=== PATIENT | male | born 1980 | race Caucasian/White ===

== ENCOUNTER 2023-10-31 15:07 | Outpatient (AMB) | payer OTHER, SELFPAY ==
--- NOTE | 2023-10-31 15:11 | A.OFFVIS_ITS ---
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 He expresses he has aching pain that started roughly one year ago and progressively got worse. He has aching pain w/ ROM and palpitation, this radiates into his bicep and forearms. He expresses a 4 out of 10 on the pain scale right now and says an 8 out of 10 on his worse days. 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 Ibuprofen, heat, and ice does not give adequate relief. 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 The patient reports that the worst pain he is experiencing is over the lateral aspect of the left elbow, although he also experiences pain in the medial left elbow and both medially and laterally in the right elbow as well. 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 The patient reports that he has been wearing elbow braces at night, but he does not feel they have helped Patient reports numbness and tingling in the small finger of the left hand, that is near constant and worse at night. No other numbness or tingling in bilateral upper extremities. No other acute complaints or concerns at this time. 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 Neuro: Diminished sensation in the left small finger noted Normal sensation to the tips of all other digits at this time No evidence of thenar or intrinsic wasting Good APB muscle belly firing in good finger cross Vascular: Cap refill brisk Pain: The patient reports tenderness to palpation of the bilateral medial and lateral epicondyles, worst on the medial and lateral epicondyle in the left ROM: Range of motion of bilateral elbows full and intact Patient is able to make a closed fist and extend fully bilaterally without difficulty Skin: No lacerations or abrasions. General: No ecchymosis, erythema, or evidence of infection. Positive Cozen's test bilaterally Positive reverse Cozen's test bilaterally Psych: Appears grossly normal Affect normal Attitude cooperative Assessment & Plan Assessment & Plan (1) Lateral epicondylitis of both elbows: Code(s): M77.11 - Lateral epicondylitis, right elbow; M77.12 - Lateral epicondylitis, left elbow Category: Medical (2) Medial epicondylitis of both elbows: Code(s): M77.01 - Medial epicondylitis, right elbow; M77.02 - Medial epicondylitis, left elbow Category: Medical (3) Numbness and tingling in left hand: Code(s): R20.0 - Anesthesia of skin; R20.2 - Paresthesia of skin Category: Medical Plan 1. Lateral epicondylitis, bilateral 2. Medial epicondylitis, bilateral Patient is educated about this condition and the typical recovery course At this time, the patient was referred to occupational therapy for range of motion, strengthening, stabilization of bilateral elbows for treatment of bilateral medial and lateral epicondylitis The patient is informed that he should only continue wearing his elbow brace as if he feels they are helpful, and then he can discontinue use if he is not noticing relief with them. Patient is amenable to this plan If in approximately 6-8 weeks the patient does not notice any relief of symptoms, he should call our office to make another appointment for discussion of further treatment options at that time 3. Numbness and tingling in the left small finger Symptoms nearly constant, daily, worse at night At this time, patient will be referred for nerve conduction study to assess the health of the nerves of the left upper extremity Patient is amenable to this plan Patient will follow-up in our office after nerve conduction study for discussion of results and further treatment options at that time. Orders: Orders OT Evaluation and Treatment 10/31/23 M77.01 - Medial epicondylitis, right elbow, M77.02 - Medial epicondylitis, left elbow, M77.11 - Lateral epicondylitis, right elbow, M77.12 - Lateral epicondylitis, left elbow NE nerve conduction velocity 10/31/23 R20.0 - Anesthesia of skin, R20.2 - P aresthesia of skin NE electromyogram (EMG) 10/31/23 R20.0 - Anesthesia of skin, R20.2 - Paresthesia of skin Coding Level of Care Code New Pt Level 3 (72944) Diagnoses Lateral epicondylitis of both elbows M77.11; M77.12 Medial epicondylitis of both elbows M77.01; M77.02 Numbness and tingling in left hand R20.0; R20.2
== END 2023-10-31 15:45 | disposition home or self-care (01) ==
DX: M77.11 Lateral epicondylitis, right elbow (principal); M77.12 Lateral epicondylitis, left elbow; M77.01 Medial epicondylitis, right elbow; M77.02 Medial epicondylitis, left elbow; R20.0 Anesthesia of skin; R20.2 Paresthesia of skin
CPT/HCPCS: 99203

== ENCOUNTER 2023-11-27 08:16 | Outpatient (REF) | payer OTHER, SELFPAY ==
--- NOTE | 2023-11-27 08:20 | EMG_ITS ---
Left median and ulnar motor and sensory studies were performed. Left radial sensory and median and lateral antecubital brachial sensory studies were performed and needle examination was performed. IMPRESSION: [id number]-be-igbinole left median neuropathy across carpal tunnel. MD ROSALIND Aden/MALLORY / [phone]
== END 2023-11-27 08:17 | disposition home or self-care (01) ==
LOC: HO.NEURO 08:16
DX: R20.0 Anesthesia of skin (principal); R20.2 Paresthesia of skin
CPT/HCPCS: 95886; 95910

== ENCOUNTER 2023-12-28 14:37 | Outpatient (AMB) | payer OTHER, SELFPAY ==
--- NOTE | 2023-12-28 14:38 | MHC.OFFVIS ---
Vital Signs 12/28/23 14:40 Height 6 ft 3 in Weight 258 lb BMI 32.2 Intake Visit Reasons: OV- left hand EMG review Intake Note: Rl is a 43 year old male who presents to the office today for his left hand EMG review. Allergies No Known Allergies Allergy (Verified 12/28/23 14:41) HPI HPI OV- left hand EMG review: Details: Patient is a 43-year-old male who presents for left hand EMG review. The patient states that his symptoms have remained consistent since last evaluation, and that they are intermittent, but daily, and worse at night. Patient would like to explore any surgical intervention indicated at this time. No other acute complaints or concerns at this time. 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 Neuro: Diminished sensation in the left small finger noted Normal sensation to the tips of all other digits at this time No evidence of thenar or intrinsic wasting Good APB muscle belly firing in good finger cross Vascular: Cap refill brisk Pain: The patient reports tenderness to palpation of the bilateral medial and lateral epicondyles, worst on the medial and lateral epicondyle in the left ROM: Range of motion of bilateral elbows full and intact Patient is able to make a closed fist and extend fully bilaterally without difficulty Skin: No lacerations or abrasions. General: No ecchymosis, erythema, or evidence of infection. Positive Cozen's test bilaterally Positive reverse Cozen's test bilaterally Psych: Appears grossly normal Affect normal Attitude cooperative Results Reviewed Results Reviewed: IMPRESSION: [id number] left median neuropathy across carpal tunnel. MD ROSALIND Aden/MALLORY Assessment & Plan Assessment & Plan (1) Carpal tunnel syndrome of left wrist: Code(s): G56.02 - Carpal tunnel syndrome, left upper limb Category: Medical Plan 1. Carpal tunnel syndrome, left Symptoms intermittent, daily, worse at night I educated the patient about the condition. I discussed both operative and nonoperative treatment options. The patient would like to proceed with surgery. The risks and benefits of operative treatment were discussed with the patient and the patient wishes to proceed with surgery. These risks include, but are not limited to, risk of damage to blood vessels, nerves, tendons, infection, recurrence, incomplete relief of preoperative symptoms, persistent pain, possible need for further surgery, and the risks associated with regional blocks and/or anesthesia. Plan is to take the patient to the operating room at some point in the next few weeks for the following procedures: 1. Left carpal tunnel release under local anesthesia All of the preoperative paperwork including the consent was discussed today. All of the patient's questions were answered in the clinic today. The patient understands that they will be in contact with our cardiovascular surgical tech to discuss scheduling their procedure. Patient denies diabetes, blood thinners, asthma, heart issues, lung issues, kidney issues, or current smoking. Coding Level of Care Code Est Pt Level 4 (47858) Diagnoses Carpal tunnel syndrome of left wrist G56.02
[2023-12-28 14:40] VITALS: BMI 32.2
== END 2023-12-28 15:19 | disposition home or self-care (01) ==
DX: G56.02 Carpal tunnel syndrome, left upper limb (principal)
CPT/HCPCS: 99214

== ENCOUNTER 2024-01-02 15:00 | Outpatient (RCR) | payer OTHER, SELFPAY ==
--- NOTE | 2023-11-20 15:42 | MHC.OT.EP ---
[address] [phone] Occupational Therapy Plan of Care Patient Name: Rl Tomas Date of Evaluation: 11/20/23 Diagnosis: L UE Medial/ lateral epicondylitis R UE lateral epicondilitis Pain Location: R FA L FA Pain Score: 6 Pain Scale Used: Numeric (0 - 10) Aggravating Factors: twisting, over head lifting, carrying, gripping Alleviating Factors: nothing ; pt has trialed hot/ cold, Tylenol, TENS unit Assessment: Pt is a 43 yr. 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 He also reports pain along his L radial wrist and numbness/ tingling in his SF/RF w/ mild ulnar clawing. He reports he has been making modifications at work as needed and relying on his R UE more and has been experiencing similar pain starting in his R Lateral epicondyle. Pt saw the MD, he reports no MRI or X-ray at this time but he is being scheduled for a nerve conduction study. Pt has been referred to skilled OT Therapy to decrease his pain, and increase the strength, and functional use of his B UE's Phalens : (-) Bilateral Tinels ulnar (+) Guyons canal (+) : L side only L side (+) [place]in (+) PALPATION of lateral epi Konstantin (+) palaption of medial epicondyle L side [ End ] Frequency and Duration: The patient will be seen 2xs a week for 8 weeks Short Term Goals: Pt will be complaint w/ HEP Pt will use modalities HOT/COLD to decrease sx's of pain/inflammation in his B UE's Pt will report 3/10 pain in L UE Half-Way Goals: Pt will gain 20 lbs of L secretary [employer] strength w/ elbow extended to 100lbs Pt will report 2/10 pain in his R UE Pt will report NO difficulty sleeping due to UE pain Treatment Plan: Therapeutic Exercise Therapeutic Activity Home Exercise Program Splinting Neuro Re-ed Patient Education Desensitization/Sensory Re-ed Edema Control ADL Training Ultrasound NMES Iontophoresis Paraffin Fluidotherapy MHP Cold Packs Joint Mobilization Soft Tissue Mobilization Kinesiotaping Other (see comments) Electronically Signed By: Shameka Sheffield OTR/L Please Sign and return to therapist. Thank you once again for your referral.
== END 2024-06-19 13:04 | disposition home or self-care (01) ==
LOC: HO.OT 15:00
DX: M77.01 Medial epicondylitis, right elbow (principal); M77.02 Medial epicondylitis, left elbow; M77.11 Lateral epicondylitis, right elbow
CPT/HCPCS: 97033; 97035; 97110; 97112; 97140; 97166; 97535; 97760

== ENCOUNTER 2024-02-14 11:56 | Day surgery (SDC) | payer OTHER, SELFPAY ==
[2024-02-14 13:00] VITALS: BP 157/92; PULSE 65; RESP 15; TEMP 36.4; O2SAT 97; BMI 32.2
--- NOTE | 2024-02-14 13:21 | MHC.SHP ---
Pre-Procedural Eval Section A - 24 Hr Update-Section A only Date of Service: 02/14/24 The patient is an INPATIENT: No Changes since office visit: No Cold of Flu in the past 2 weeks, No New Medical Problems, No Changes in Medication and No Patient answered all questions The patient has been examined within 24 hours of the surgical procedure. The History & Physical has been completed within 30 days and I have reviewed it.: Yes Section B - Complete if H&P > 30 days Chief Complaint: Carpal tunnel syndrome, left upper limb Allergies: Allergies Allergy/AdvReac Type Severity Reaction Status Date / Time No Known Allergies Allergy Verified 02/14/24 13:00 Plan Diagnosis/Plan: Unchanged I have reviewed the history and physical and performed a pertinent physical examination on my patient. No changes have occurred unless specified. Time Spent With Patient Time: Total time managing care of this patient today ____ minutes.
--- NOTE | 2024-02-14 14:53 | P.OP_ITS ---
Operative Note Operative Note Date of Service: 02/21/24 Narrative: Preop diagnosis: 1. Left Carpal tunnel syndrome Postop diagnosis: same Procedure: 1. Left Carpal tunnel release Surgeon: Ying Fontanez MD Forklift Wheel Loader: Kyle LOUIS Anesthesia: local block using 1% lidocaine with epinephrine Findings: Thickened transverse carpal ligament. EBL: Less than 5 mL Specimens: None Complications: None Disposition: Brought to recovery room in stable condition Plan: Follow-up for 10-14 days for wound check and suture removal Indications: The patient is 43 years old, with left carpal tunnel syndrome that has been unresponsive to nonoperative management. The risks and benefits of operative treatment including but not limited to risk of damage to blood vessels, nerves, tendons, infection, persistent pain, persistent symptoms, or possible need for additional surgery were discussed with the patient and the patient wishes to proceed with surgery. Procedure: Once consent was obtained a local block was performed using a combination of 1% lidocaine with epinephrine. The patient was then brought back to the operating suite and placed on the operative table in supine position. The left upper extremity was prepped and draped in a standard surgical fashion. Once assured that we had a good block, a 2.0 cm longitudinal incision was made centered over the carpal tunnel. The incision was made through the skin to the subcutaneous tissues using a #15 blade. Dissection was made down to the level of the transverse carpal ligament with care being taken to protect the palmar cutaneous nerve. Once the transverse carpal ligament was clearly visualized, a longitudinal incision was made in the transverse carpal ligament 1st using a #15 blade, then using tenotomy scissors under direct visualization. Care was taken to look for and protect the motor branch of the median nerve when seen in this area. Once satisfied with our carpal tunnel release the wound was copiously irrigated with normal saline and hemostasis was obtained with a brief period of local pressure. The skin edges were reapproximated with some 5.0 nylon suture material and a sterile dressing was applied. The patient appears to have tolerated the procedure well and with no complications. All digits were well vascularized at the conclusion of the case.
[2024-02-14 14:57] VITALS: BP 135/86; PULSE 63; RESP 16; O2SAT 98
== END 2024-02-14 14:59 | disposition home or self-care (01) ==
PROVIDERS: Visit Provider Orthopaedic Surgery
PROC: (CPT 64721; principal; 2024-02-14 13:30)
DX: G56.02 Carpal tunnel syndrome, left upper limb (principal); F17.210 Nicotine dependence, cigarettes, uncomplicated
CPT/HCPCS: 64721; J0171; J2003

== ENCOUNTER → 2024-02-14 11:56 | Outpatient (BNV) | payer OTHER, SELFPAY | PROVIDERS: Visit Provider Orthopaedic Surgery | DX: G56.02 Carpal tunnel syndrome, left upper limb (principal) | CPT/HCPCS: 64721 ==

== ENCOUNTER 2024-02-26 11:21 | Outpatient (AMB) | payer OTHER, SELFPAY ==
--- NOTE | 2024-02-26 11:25 | MHC.OFFVIS ---
Intake Visit Reasons: PO LT CTR 02/14/24 AR Intake Note: Rl is a 43 year old left hand male who presents today for a post operative visit s/p left carpal tunnel release DOS: 02/14/[address] Fontanez.. Patient reports he is still having numbness and tingling that comes and goes through the day. There is some discomfort around incision site. Denies drainage. Incision appears to be slightly opened. Allergies No Known Allergies Allergy (Verified 02/26/24 11:39) HPI HPI PO LT CTR 02/14/24 AR: Details: Patient is a 43-year-old male who presents for postoperative evaluation status post left carpal tunnel release, DOS 02/14/[address] Fontanez. Today, the patient reports that his numbness and tingling is improving, but is still present in the left hand. The patient does report some concern that he feels his incision may not be fully healed at this time, as the top layer of skin has not closed fully. Patient expresses he experiences mild discomfort about the incision site. Denies any redness or discharge. No other acute complaints or concerns at this time. 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 Neuro: Normal sensation of the tips of all digits of the left hand at this time Vascular: Cap refill brisk Pain: Patient reports minimal tenderness to palpation about the incision site on the volar left wrist ROM: Patient is able to make a closed fist and extend all digits of the left hand fully Skin: Well-approximated incision site noted on the volar aspect of the patient's left wrist However, with gentle manipulation, this incision site does begin to ooze small amounts of blood General: No ecchymosis, erythema, or evidence of infection. Psych: Appears grossly normal Affect normal Attitude cooperative Assessment & Plan Assessment & Plan (1) Carpal tunnel syndrome of left wrist: Code(s): G56.02 - Carpal tunnel syndrome, left upper limb Category: Medical Plan 1. Carpal tunnel syndrome, left, status post carpal tunnel release DOS 02/14/2024 Patient appears to be recovering fairly well postoperatively Patient is educated about the typical recovery course Half of sutures are removed at this time At this time, patient was informed that due to the fact that the incision site is still bleeding slightly even with gentle manipulation, I have some concerns that it may not be fully healed Patient is advised that he should keep the incision site clean, dry, intact, and dressed while out and about leaving a small bit of antibiotic ointment on it Patient will follow-up in 1 week for reassessment, sooner with any acute concerns Coding Level of Care Code Global (10083) Diagnoses Carpal tunnel syndrome of left wrist G56.02
== END 2024-02-26 12:31 | disposition home or self-care (01) ==
DX: G56.02 Carpal tunnel syndrome, left upper limb (principal)
CPT/HCPCS: 99024

== ENCOUNTER 2024-03-07 09:10 | Outpatient (AMB) | payer OTHER, SELFPAY ==
--- NOTE | 2024-03-07 09:11 | A.OFFVIS_ITS ---
Intake Visit Reasons: PO LT CTR 02/14/24 AR-wound check Intake Note: Rl is a 43 year old left hand male who presents today for a post operative visit and wound check s/p left carpal tunnel release DOS: 02/14/[address] Fontanez. Allergies No Known Allergies Allergy (Verified 03/07/24 09:14) HPI HPI PO LT CTR 02/14/24 AR-wound check: Details: Patient is a 43-year-old male who presents for postoperative evaluation status post left carpal tunnel release, DOS 02/14/2024. Today, the patient reports that his incision looks much better than it did at previous evaluation, and that there was no active bleeding or discharge at this time. Patient states he has no pain in the incision site. Numbness and tingling has improved, but he does still experience occasional carpal tunnel syndrome symptoms in the left. Of note, the patient does report that he does have some intermittent numbness and tingling in the ulnar nerve distribution of the right hand. No other acute complaints or concerns at this time. 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 Neuro: Normal sensation of the tips of all digits of the left hand at this time Normal sensation of the tips of all digits of the right hand at this time Vascular: Cap refill brisk Pain: Patient reports no tenderness to palpation about the incision site on the volar left wrist ROM: Patient is able to make a closed fist and extend all digits of the left hand fully Skin: Well-approximated incision site noted on the volar aspect of the patient's left wrist Incision appears to be healing well General: No ecchymosis, erythema, or evidence of infection. Psych: Appears grossly normal Affect normal Attitude cooperative Assessment & Plan Assessment & Plan (1) Carpal tunnel syndrome of left wrist: Code(s): G56.02 - Carpal tunnel syndrome, left upper limb Category: Medical (2) Numbness and tingling of right hand: Code(s): R20.0 - Anesthesia of skin; R20.2 - Paresthesia of skin Category: Medical Plan 1. Carpal tunnel syndrome, left, status post carpal tunnel release DOS 02/14/2024 Patient appears to be recovering fairly well postoperatively Patient is educated about the typical recovery course Remaining sutures removed at this time At this time, patient was informed that he appears to be recovering very well, and will require no further acute follow-up from us for his left carpal tunnel symptoms Patient was amenable to this plan 2. Numbness and tingling of right hand Symptoms intermittent, daily, worse at night Patient was referred for EMG and nerve conduction study for assessment of the health of the nerves of the right upper extremity Patient will follow-up after EMG and nerve conduction study for results review and discussion of all treatment options if indicated Patient was amenable to this plan Orders: Orders NE electromyogram (EMG) Today R20.0 - Anesthesia of skin, R20.2 - Paresthesia of skin NE nerve conduction velocity Today R20.0 - Anesthesia of skin, R20.2 - Paresthesia of skin Coding Level of Care Code Est Pt Level 3 (33820) Diagnoses Carpal tunnel syndrome of left wrist G56.02 Numbness and tingling of right hand R20.0; R20.2
== END 2024-03-07 09:51 | disposition home or self-care (01) ==
DX: G56.02 Carpal tunnel syndrome, left upper limb (principal); R20.0 Anesthesia of skin; R20.2 Paresthesia of skin
CPT/HCPCS: 99213

== ENCOUNTER 2024-03-24 13:14 | Outpatient (AMB) | payer OTHER, SELFPAY ==
--- NOTE | 2024-03-24 13:24 | A.OFFVIS_ITS ---
Vital Signs 03/24/24 13:25 Height 6 ft 3 in Weight 258 lb BMI 32.2 Intake Visit Reasons: INJ: B/L elbow injection Intake Note: Rl is a 43 year old left hand dominant male who presents today for left elbow injections. 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 Physical Exam Vital Signs: BMI result Body Mass Index 32.2 Office Procedures Joint Inj/Aspir; Non-Pain Clin Joint Injection/Drain Prep: site was prepped using aseptic technique and injection warnings given Procedure: The patient tolerated the procedure well, but had some pain with the injection and there was some relief with the local anesthesia Elbows, Wrist, Hands, Details: Left medial epicondyle injection Elbow Injection Medium joint : Left Elbow Coding Procedure code (CPT) selection complete Assessment & Plan Assessment & Plan (1) Medial epicondylitis of both elbows: Code(s): M77.01 - Medial epicondylitis, right elbow; M77.02 - Medial epicondylitis, left elbow Category: Medical Plan 1. Medial epicondylitis of left elbow The risks and benefits of a steroid injection including but not limited to risk of damage to blood vessels, nerves, tendons, infection, skin bleaching, failure to improve symptoms, increased pain, and possible need for further injections or other intervention were discussed with the patient and the patient wishes to proceed with the steroid injection. Once consent was obtained, I sterilely prepped the area over the medial epicondyle of the left elbow. I then injected the area over the lateral epicondyle with a combination of 40 mg of dexamethasone and 1 mL of 1% lidocaine. The patient tolerated the procedure well with no complications. If the patient continues to experience symptoms over the next 4 weeks, they can make an appointment to return and discuss alternative treatment measures, such as physical therapy. Follow-up prn Coding Level of Care Code Procedure Only Diagnoses Medial epicondylitis of both elbows M77.01; M77.02 CPT Codes Elbows, Wrist, Hands, - Elbow Injection Medium joint : Left Elbow ([id number])
[2024-03-24 13:25] VITALS: BMI 32.2
== END 2024-03-24 13:26 | disposition home or self-care (01) ==
DX: M77.01 Medial epicondylitis, right elbow (principal); M77.02 Medial epicondylitis, left elbow
CPT/HCPCS: 20551

== ENCOUNTER → 2024-03-24 13:14 | Outpatient (BNVA) | payer OTHER, SELFPAY | DX: M77.02 Medial epicondylitis, left elbow (principal); M77.01 Medial epicondylitis, right elbow | CPT/HCPCS: 20551; J1100; J2003 ==